=== PATIENT | male | born 1960 | race Caucasian/White ===

== ENCOUNTER → 2016-11-30 | Outpatient (CLI) | payer BC ==
[~2016-11-30] MED LIST: ALBUTEROL17 GM INH; AMOXICILLIN500 M1 PO; BREO ELLIPTA I1 EACH; CEFDINIR300 M2 DOB; COPD MED; DALIRESP500 MCG; DOXYCYCLINE HY100 M4 PO; FLEXERIL10 MG PO; KLONOPIN0.5 MG PO; LISINOPRIL; MEDROL4 MG/DOSE- PO; NAPROXEN PO; PREDNISONE PO; PREDNISONE10 MG/DOSE PO; PRILOSEC40 MG; PRILOSEC40 MG PO; PROAIR HFA8.5 GM; ROBITUSSIN A-C S5 ML PO; SYNTHROID; SYNTHROID PO; SYNTHROID112 MCG PO; TUDORZA PRESS400 MCG; VOLTAREN50 MG PO; VOLTAREN75 MG PO; ZANTAC PO; ZITHROMAX PO; ZITHROMAX1 G/PKT PO; ZYRTEC PO; ZYRTEC-D T1 TAB.SR . PO; [UNRECOGNIZED DRUG - OTHER] PO
--- NOTE | ~2016-11-30 | CR63 ---
[facility]. [facility] A Service of [facility] & [facility] RADIOLOGY TEXT RESULTS PATIENT: NEAL DAVIS LOCATION: [facility] : 60 UNIT #: [id number] AGE: [address]: YARA REYNA APRN SEX: M ORDER DR: [id number] [place] [id number] O MR#: [id number] Acc #: [id number] NAME: NEAL DAVIS : 1960 SEX: M STUDY DATE/TIME: 11/30/2016 14:57 UNIT: [facility] ROOM: STUDY DESCRIPTION: CR Chest 2 View Attending Physician: Yara Reyna Aprn Referring Physician: Yara Reyna Aprn Ordering Physician: Yara Reyna Aprn Primary Care Physician: Yara Reyna Aprn MEDICAL IMAGING REPORT This report is preliminary unless electronic signature is present. EXAM Chest PA and lateral 11/30/2016 COMPARISON 07/06/2015 HISTORY Cough and severe chest congestion beginning 10 days ago. FINDINGS PA and lateral views of the chest are obtained. Cardiac size is normal. Lungs show diffusely prominent tissue markings, unchanged. No acute process is seen. CONCLUSION Diffusely prominent interstitial markings likely reflecting chronic interstitial lung disease. No acute process identified. Dictated by... Junior Hidalgo M.D. THIS IS AN ELECTRONICALLY VERIFIED REPORT Junior Hidalgo M.D. at 12/01/2016 7:26 AM LEONEL/nathen TD: 11/30/2016 15:43 JOB #: [id number] MEDICAL IMAGING REPORT Page 1 of 1
== END | disposition home or self-care (01) ==
LOC: SRAD 14:44
DX: R06.02 Shortness of breath (principal); R91.8 Other nonspecific abnormal finding of lung field
CPT/HCPCS: 71020